=== PATIENT | male | born 1935 | race Caucasian/White ===

== ENCOUNTER 2018-06-18 15:36 | Emergency (ER) | payer MEDICARE, BC ==
--- NOTE | 2018-06-18 16:50 | ED ---
Hypertension - HPI Summary HPI Summary: This is scribe Jaida Akhtar documenting for attending Yoandy Ojeda MD. This patient is a 83 year old M BIBA to [facility] accompanied by his with a chief complaint of multiple elevated BP reading begging last night into this morning. 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 Patient states his systolic blood pressure was 197. Denies chest pain or any other symptoms at this time. PMHx of DM and IBS. I, Dr. Ojeda, personally performed the services described in this documentation as scribed in my presence and it is both accurate and complete. - History of Current Complaint Chief Complaint: EDHypertension Stated Complaint: HIGH BLOOD PRESSURE Time Seen by Provider: 06/18/18 16:24 Hx Obtained From: Patient Onset/Duration: Started Days Ago Timing: Constant Reported Blood Pressure Prior To Arrival: systolic 197 Associated Signs & Symptoms: Negative - Allergies/Home Medications Allergies/Adverse Reactions: Allergies Allergy/AdvReac Type Severity Reaction Status Date / Time No Known Allergies Allergy Verified 06/18/18 15:48 PMH/Surg Hx/FS Hx/Imm Hx Endocrine/Hematology History: Reports: Hx Diabetes Cardiovascular History: Reports: Hx Hypertension GI History: Reports: Hx Irritable Bowel - Immunization History Immunizations Up to Date: Yes Infectious Disease History: No Infectious Disease History: Denies: Traveled Outside the [place] in Last 30 Days - Family History Known Family History: Positive: Hypertension - Social History Alcohol Use: Occasionally Substance Use Type: Reports: None Smoking Status (MU): Former Smoker Review of Systems Negative: Chest Pain Negative: Shortness Of Breath All Other Systems Reviewed And Are Negative: Yes Physical Exam - Summary Physical Exam Summary: VITAL SIGNS: Reviewed. GENERAL: Patient is a well-developed and nourished male who is lying comfortable in the stretcher. Patient is not in any acute respiratory distress. HEAD AND FACE: No signs of trauma. No ecchymosis, hematomas or skull depressions. No sinus tenderness. EYES: PERRLA, EOMI x 2, No injected conjunctiva, no nystagmus. EARS: Hearing grossly intact. Ear canals and tympanic membranes are within normal limits. MOUTH: Oropharynx within normal limits. NECK: Supple, trachea is midline, no adenopathy, no JVD, no carotid bruit, no c- spine tenderness, neck with full ROM. CHEST: Symmetric, no tenderness at palpation LUNGS: Clear to auscultation bilaterally. No wheezing or crackles. CVS: Regular rate and rhythm, S1 and S2 present, no murmurs or gallops appreciated. ABDOMEN: Soft, non-tender. No signs of distention. No rebound no guarding, and no masses palpated. Bowel sounds are normal. EXTREMITIES: FROM in all major joints, no edema, no cyanosis or clubbing. AKA bilaterally. NEURO: Alert and oriented x 3. No acute neurological deficits. Speech is normal and follows commands. SKIN: Dry and warm Triage Information Reviewed: Yes Vital Signs On Initial Exam: Initial Vitals Temp Pulse Resp BP Pulse Ox 99.1 F 70 16 166/70 95 06/18/18 15:37 06/18/18 15:37 06/18/18 15:37 06/18/18 15:37 06/18/18 15:37 Vital Signs Reviewed: Yes Diagnostics - Vital Signs Vital Signs Temp Pulse Resp BP Pulse Ox 06/18/18 16:00 68 94 06/18/18 15:50 72 168/76 95 06/18/18 15:37 99.1 F 70 16 166/70 95 - Laboratory Result Diagrams: 06/18/18 16:46 06/18/18 16:46 Lab Statement: Any lab studies that have been ordered have been reviewed, and results considered in the medical decision making process. - Radiology CXR Radiology Interpretation Completed By: Radiologist - NO ACTIVE DISEASE. ED Physican has reviewed this report. - EKG 1701 Cardiac Rate: NL - 67 BPM EKG Rhythm: Sinus Rhythm EKG Interpretation: no ST elevations Hypertension Course/Dx - Course Assessment/Plan: This patient is an 83-year-old male who presents to the emergency department with a chief complaint of having increased blood pressures. Patient denies any symptoms. Patient denies any chest pain, SOB, and palpitations, patient denies any headache or dizziness. Blood test results without any significant abnormality except for slight anemia, urinalysis with positive leukocytes and white blood cell count and yeast. At this time I discussed my physical exam and findings and test results with the patient and the patients and over antibiotics for the UTI however he wants to wait until we get in the urine culture. He reports that he doesnt have any dysuria or hematuria and urinary frequency or fevers. In the ED course also the blood pressures have been within normal limits. Before discharge the patients blood pressure is 133/58. Therefore the patient was discharged home with follow-up with PCP. I discussed all the findings and test results with the patient. Patient was instructed to return to the emergency room immediately if any of the symptoms return or worsens. Plan of care was discussed with the patient and understands and agrees. All questions were answered at patient satisfaction. There were no further complaints or concerns. Lung exam before discharge: CTA B /L. Good air exchange. No wheezing or crackles heard. CVS: S1 and S2 present. No murmurs appreciated. Patient is alert and oriented x 3. Patient is hemodynamically stable. Patient will be discharged home with follow up PCP in the next 2-3 days - Diagnoses Differential Diagnosis/HQI PQRI: Hypertension, Hypertensive Crisis, Hypertensive Urgency Provider Diagnoses: Uncontrolled hypertension Discharge - Sign-Out/Discharge Documenting (check all that apply): Patient Departure - Discharge Plan Condition: Stable Disposition: HOME Patient Education Materials: Chronic Hypertension (ED) Referrals: [facility] [place] PHYSICIAN REFERRAL [Outside] - 2 Days (Follow up with your primary care physican regarding your elevated blood pressure. Call for a physician referreal if a primary care physcian is needed in the area. ) No Primary Care Phys,NOPCP [Primary Care Provider] - Additional Instructions: FOLLOW UP WITH YOUR PRIMARY CARE PROVIDER WITHIN ONE WEEK FOR HIGH BLOOD PRESSURE NOTED TODAY. RETURN TO THE EMERGENCY DEPARTMENT FOR ANY WORSENING OR NEW SYMPTOMS. - Billing Disposition and Condition Condition: STABLE Disposition: Home
[2018-06-18 17:00] LABS: ABS Basophils 0.1 10^3/ul (0-0.2); ABS Eosinophils 0.1 10^3/ul (0-0.6); ABS Lymphocytes 0.9 10^3/ul (1.0-4.8); ABS Monocytes 0.5 10^3/ul (0-0.8); ABS Neutrophils 5.9 10^3/ul (1.5-7.7); ABS Nucleated RBC 0 10^3/ul; Eosinophil % 1.6 % (0-6); Hematocrit 32 % (42-52); Lymphocyte % 11.9 % (25-47); Mean Corpuscular HGB Conc 35 g/dl (31-36); Mean Corpuscular Hemoglobin 31 pg (27-31); Mean Corpuscular Volume 90 fL (80-94); Mean Platelet Volume 7.6 um3 (7.4-10.4); Nucleated Red Blood Cells % 0; Platelet Count 216 10^3/ul (150-450); Red Cell Distribution Width 14 % (10.5-15); White Blood Count 7.5 10^3/ul (3.5-10.8)
[2018-06-18 17:18] LABS: EGFR Non-African American 88.3 (>60)
--- NOTE | 2018-06-18 17:24 | RAD ---
INDICATION: Hypertension COMPARISON: None TECHNIQUE: An AP portable view obtained at 1709 hours is submitted. FINDINGS: Bones/Soft Tissues: There are no acute bony findings. Cardiomediastinal: The cardiomediastinal silhouette is normal. Lungs: There are no infiltrates. Pleura: There are no pleural effusions. Other: None IMPRESSION: NO ACTIVE DISEASE.
[2018-06-18 17:46] LABS: Urine Appearance Clear; Urine Blood Negative (Negative); Urine Color Yellow; Urine Ketones Negative (Negative); Urine Protein 1+(30 mg/dL) (Negative); Urine Red Blood Cell Trace(0-2/hpf) (Absent); Urine Specific Gravity 1.013 (1.010-1.030); Urine Urobilinogen Negative (Negative); Urine White Blood Cell 3+(>20/hpf) (Absent)
[2018-06-18 18:40] VITALS: BP 128/75
== END 2018-06-18 18:40 | disposition home or self-care (01) ==
LOC: ED 15:36
DX: I10 Essential (primary) hypertension (principal); E11.9 Type 2 diabetes mellitus without complications; K58.9 Irritable bowel syndrome, unspecified; Z87.891 Personal history of nicotine dependence
CPT/HCPCS: 36415; 71045; 80053; 81003; 81015; 82550; 82553; 83605; 83874; 83880; 84443; 85025; 87077; 87086; 87186; 93005; 99283

== ENCOUNTER 2018-06-30 22:44 | Emergency (ER) | payer MEDICARE, BC ==
[2018-06-30 22:57] VITALS: BP 127/61
--- NOTE | 2018-06-30 23:32 | ED ---
Hypertension - HPI Summary HPI Summary: A 83 y/o male presents to ED c/o high blood pressure. In the ED room, the patient has a pulse of 64 BPM, O2 saturation of 96% and blood pressure of 127/ 61. As per triage, "pt here with c/o HBP". According to the patient, he has been experiencing HBP. He noted that his BP went up to 200 systolic, but in EMS it went down to 152 BPM and now currently it is approximately 126. He stated that he was told by his customer advocate in [place], to come to ED if blood pressure is higher than 160 systolic. He wants to see a customer advocate at [facility] [place] as soon as possible. As per , the patient was recently diagnosed with a bladder infection of 05/18. He has no other symptoms, denies any dizziness, headache, vision changes and chest pain. PMHx of HBP, AKA. The patient takes several medications and takes them as prescribed by his MD. Patient checks BP in AM and PM when he is in [place], but he has been checking it several times more when his BP is high. Blood sugar was high this AM, but it was been running "pretty good most of the time". BP machine is new and BP cuff is a good size. Will go back to [place] by end of July. - History of Current Complaint Chief Complaint: EDHypertension Stated Complaint: HIGH BP Time Seen by Provider: 06/30/18 22:59 Hx Obtained From: Patient Onset/Duration: Started Hours Ago, Resolved Timing: Intermittent Aggravating Factor(s): Nothing Alleviating Factor(s): Nothing Associated Signs & Symptoms: Negative - Allergies/Home Medications Allergies/Adverse Reactions: Allergies Allergy/AdvReac Type Severity Reaction Status Date / Time No Known Allergies Allergy Verified 06/30/18 22:56 Home Medications: Home Medications Ascorbic Acid TAB* [Vitamin C TAB*] 500 mg PO DAILY 06/30/18 [History Confirmed 06/30/18] Aspirin 81 mg CHEW TAB* [Aspirin Low Dose TAB*] 81 mg PO DAILY 06/30/18 [ History Confirmed 06/30/18] Clopidogrel TAB* [Plavix TAB*] 75 mg PO DAILY 06/30/18 [History Confirmed ] Dicyclomine CAP* [Bentyl CAP*] 10 mg PO TID PRN 06/30/18 [History Confirmed ] Gabapentin 300 mg PO TID 06/30/18 [History Confirmed 06/30/18] Insulin NPH(*) 20 units SUBCUT BID 06/30/18 [History Confirmed 06/30/18] Iron 18 mg PO DAILY 06/30/18 [History Confirmed 06/30/18] Labetalol HCl 200 mg PO DAILY 06/30/18 [History Confirmed 06/30/18] MinoXIDil TAB* [Loniten TAB*] 2.5 mg PO DAILY 06/30/18 [History Confirmed ] Multivit-Min/FA/Lycopen/Lutein [Centrum Silver Men Tablet] 1 each PO DAILY 06/30 [History Confirmed 06/30/18] Potassium Chlor TAB* [Klor Con ER TAB*] 10 meq PO DAILY 06/30/18 [History Confirmed 06/30/18] Valsartan/Hydrochlorothiazide [Valsartan/Hydrochlorothia] 1 tab PO DAILY [History Confirmed 06/30/18] Vitamin B Complex CAP* [B Complex CAP*] 1 cap PO DAILY 06/30/18 [History Confirmed 06/30/18] PMH/Surg Hx/FS Hx/Imm Hx Endocrine/Hematology History: Reports: Hx Diabetes Cardiovascular History: Reports: Hx Hypertension GI History: Reports: Hx Irritable Bowel - Surgical History Surgery Procedure, Year, and Place: 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 Negative: Chest Pain Neurological: Other - NEGATIVE: Dizziness Negative: Headache Positive: Anxious All Other Systems Reviewed And Are Negative: Yes Physical Exam - Summary Physical Exam Summary: VITAL SIGNS: Reviewed. GENERAL: Patient is a well-developed and nourished male who is lying comfortable in the stretcher. Patient is not in any acute respiratory distress. Patient is worried about BP. HEAD AND FACE: No signs of trauma. No ecchymosis, hematomas or skull depressions. No sinus tenderness. EYES: PERRLA, EOMI x 2, No injected conjunctiva, no nystagmus. EARS: Hearing grossly intact. Ear canals and tympanic membranes are within normal limits. MOUTH: Oropharynx within normal limits. NECK: Supple, trachea is midline, no adenopathy, no JVD, no carotid bruit, no c- spine tenderness, neck with full ROM. CHEST: Symmetric, no tenderness at palpation LUNGS: Clear to auscultation bilaterally. No wheezing or crackles. CVS: Regular rate and rhythm, S1 and S2 present, no murmurs or gallops appreciated. ABDOMEN: Soft, non-tender. No signs of distention. No rebound no guarding, and no masses palpated. Bowel sounds are normal. EXTREMITIES: FROM in all major joints, no edema, no cyanosis or clubbing. Bilateral AKA NEURO: Alert and oriented x 3. No acute neurological deficits. Speech is normal and follows commands. SKIN: Dry and warm Psych: Patient is anxious Triage Information Reviewed: Yes Vital Signs On Initial Exam: Initial Vitals Temp Pulse Resp BP Pulse Ox 98 F 64 16 127/61 95 06/30/18 22:56 06/30/18 22:56 06/30/18 22:56 06/30/18 22:56 06/30/18 22:56 Vital Signs Reviewed: Yes Diagnostics - Vital Signs Vital Signs Temp Pulse Resp BP Pulse Ox 06/30/18 22:56 98 F 64 16 127/61 95 - Laboratory Lab Statement: Any lab studies that have been ordered have been reviewed, and results considered in the medical decision making process. Hypertension Course/Dx - Course Course Of Treatment: A 83 y/o male presents to ED c/o high blood pressure. In the ED room, the patient has a pulse of 64 BPM, O2 saturation of 96% and blood pressure of 127/61. No laboratory scans were done. No blood work was done. In the ED course, the patient received no medications. Patient is anxious and very worried about blood pressure. But, the patient was reassurred that his current blood pressure is within normal limits. In the ED room, the patient has a pulse of 64 BPM, O2 saturation of 96% and blood pressure of 127/61. Patient agreed to be discharged and will follow up with customer advocate. Patient will be discharged with a diagnosis HTN. Patient is to follow up with customer advocate tomorrow. Patient is agreeable with this plan. - Diagnoses Provider Diagnoses: HTN (hypertension) Discharge - Sign-Out/Discharge Documenting (check all that apply): Patient Departure - DISCHARGE - Discharge Plan Condition: Stable Disposition: HOME Patient Education Materials: Chronic Hypertension (ED) Referrals: Alfonso Trotter MD [Medical Doctor] - 1 Day Additional Instructions: FOLLOW UP WITH CARDIOLOGY TOMORROW. RETURN TO THE ED FOR ANY NEW OR WORSENING SYMPTOMS. - Attestation Statements Document Initiated by Scribe: Yes Documenting Scribe: Humberto Yeager Provider For Whom Scribe is Documenting (Include Credential): Marty Kraus Scrkatiuska Attestation: Humberto Saleem, scribed for Marty Kraus on 06/30/18 at 2323.
== END 2018-06-30 23:57 | disposition home or self-care (01) ==
LOC: ED 22:44
DX: I10 Essential (primary) hypertension (principal); Z87.891 Personal history of nicotine dependence; E11.9 Type 2 diabetes mellitus without complications
CPT/HCPCS: 99282